=== PATIENT | female | born 2000 | race Caucasian/White ===

== ENCOUNTER 2021-10-08 08:19 | Emergency (ER) | payer BC ==
[2021-10-08 08:28] VITALS: BP 125/74
[2021-10-08] MEDS ORDERED: ZOFRAN ODT SL STA (09:15)
--- NOTE | 2021-10-08 09:31 | ER.PDOC ---
General Chief Complaint: Cough/Congestion Stated Complaint: COUGH/CONGESTION,ST, HEAD/BODYACHE,N/V Time seen by MD: 09:29 Source: patient Exam Limitations: no limitations History of Present Illness Initial Comments Cough, congestion, headache, body aches and nausea since last night. Timing/Duration: gradual Severity: moderate Associated Symptoms: runny nose, sore throat, cough, headache Allergies: Coded Allergies: No Known Allergies (Unverified , 10/08/21) Constitutional: no symptoms reported EENTM: see HPI Respiratory: see HPI Cardiovascular: no symptoms reported Gastrointestinal: see HPI Genitourinary: no symptoms reported All Other Systems: Reviewed and Negative Past Medical History Medical History: no pertinent history Surgical History: no surgical history Family History Significant Family History: no pertinent family hx Social History Smoking: non-smoker Alcohol Use: none Drug Use: none Physical Exam General Appearance: alert, no distress Eye: eyes nml inspection Nose: rhinorrhea Throat: pharynx nml, airway nml Neck: nml inspection, supple Respiratory: no resp.distress, breath sounds nml Abdomen: non-tender, no organomegaly CVS: reg rate & rhythm, heart sounds nml Skin: color nml, no rash, warm/dry Extremities: non-tender, nml ROM, no pedal edema NEURO/PSYCH: oriented x 3, CN's nml as tested, motor nml, sensation nml, moo d/affect nml Results/Orders Results/Orders Orders - JENNY MEYER MD Covid19 Antigen Kimberly Kemi (10/08/21 08:25) Strep Screen (10/08/21 08:25) Influenza A&B (10/08/21 08:25) Ondansetron (Zofran Odt) (10/08/21 09:15) Vital Signs Date Time Temp Pulse Resp B/P (MAP) Pulse Ox O2 Delivery O2 Flow Rate FiO2 10/08/21 08:28 99.3 105 18 99 10/08/21 08:28 99.3 105 18 10/08/21 08:28 99.3 105 18 125/74 (91) 99 Room Air* 0 21 Laboratory Tests Test 10/08/21 08:30 Influenza Type A Antigen NEGATIVE (NEG) Influenza Type B Antigen NEGATIVE (NEG) SARS-CoV-2 Antigen (Rapid) NEGATIVE (NEGATIVE) Group A Streptococcus Screen NEGATIVE (NEGATIVE) Progress Progress Patient received Zofran ODT with improvement in nausea. Flu, strep and COVID are negative. ER DEPART Departure Time of Disposition: 09:30 Disposition: 01 HOME / SELF CARE / HOMELESS Impression: Primary Impression: Viral upper respiratory tract infection with cough Condition: Improved Referrals: PCP,UNKNOWN (PCP) PRIMARY CARE PROVIDER Additional Instructions: Zofran ODT Mucinex DM [id number] as directed Tylenol Follow-up with your PCP in 1 week Return to ED if worsening symptoms or concerns Duration or Time Spent with Pa: 10 min BETSY,JENNY Gonsalves MD Oct 08, 2021 09:31
[2021-10-08] MEDS ORDERED: ZOFRAN ODT ONE (09:32)
== END 2021-10-08 09:35 | disposition home or self-care (01) ==
LOC: ER 08:19
DX: J06.9 Acute upper respiratory infection, unspecified (principal); Z20.822 Contact with and (suspected) exposure to COVID-19; R52 Pain, unspecified; R11.0 Nausea
CPT/HCPCS: 87070; 87426; 87804; 87880; 99283